=== PATIENT | female | born 1940 | race Caucasian/White ===

== ENCOUNTER 2016-10-11 07:56 | Day surgery (SDC) | payer OTHER, MEDICARE ==
[~2016-10-11] VITALS: Ht 167.6 cm; Wt 95.3 kg
[~2016-10-11 07:56] MED LIST: ATEN25TA PO; CeFAZolin Inj 2 GM in IV Premix 1 EACH IV SCH; HYDR-4003 PO; HYDR12.55 PO
[2016-10-11] MEDS ORDERED: fentaNYL-PF 50 mCg/mL 2 mL Inj ONE (07:57)
[2016-10-11] MEDS ORDERED: Propofol 10,000 mCg/mL 20 mL Inj ONE (07:57)
[2016-10-11] MEDS: Lactated Ringer's 1,000 ML IV SCH ×2 (08:00→08:58)
[2016-10-11] MEDS ORDERED: [UNRECOGNIZED DRUG - REMARK] PO (08:08)
[2016-10-11 08:35] VITALS: BP 117/75; PULSE 75; RESP 18; O2SAT 97
[2016-10-11] MEDS ORDERED: Lactated Ringer's 1,000 ML IV SCH (08:51)
[2016-10-11] MEDS ORDERED: Lactated Ringer's 500 ML IV PRN (08:51)
--- NOTE | 2016-10-11 08:51 | PCM.HPANE ---
Patient Data Date of Service: Oct 11, 2016 (0850) Surgeon Admitting Provider: Attending Provider:Rosita Bagley DPM Primary Care Physician:Lucero Petersen MD Other Provider:Mario Alberto Parks Anesthesia Reason for Visit Left 2ND And 3RD Hammertoes Ht/WT & BMI Height (Feet): 5 Height (Inches): 6 Weight (Kilograms): 95.98 Body Mass Index 34.00 Allergies Coded Allergies: ether (Verified Allergy, Unknown, 10/07/16) Past Anesthesia History Anesthesia History: Positive for:: Anesthesia Reactions (ether- had cardiac arrest, no problems with other anesth), Denies:: Abnormal Airway, Difficult Intubation, Fam Anesthesia Reaction, Fam Malignant Hypertherm, Malignant Hyperthermia Diabetes History Hx Diabetes?: No MRSA MRSA: No Medications Home Meds Incl Beta Stiven: Yes Active Scripts Hydrocodone-Acetaminophen 5-325 mg 1 Each Tablet1-2 Tablet PO Q4H PRN For Pain # 15 TABLET Prov:Jon Malin MD 04/23/16 Reported Medications [vingar pill] No Conflict Check Po Daily 10/11/16 Hydrochlorothiazide 12.5 Mg Ybuzsb56.5 Mg PO DAILY 30 Days Ref 0 08/07/15 Atenolol 25 Mg Aamyof70 Mg PO DAILY #30 TABLET Ref 0 08/07/15 History History of ENT Problems?: Yes HEENT History: Positive for:: Cataracts Denies:: Abnormal Airway Difficult Intubation Dysphagia Hearing Problem Sinus Problem Denture Type: Full- Upper Teeth Condition: Missing Teeth Hx of Heart Problems?: Yes Cardiovascular History: Positive for:: Chest Pain Hypertension Denies:: AICD Atrial Fibrillation Cardiac Surgery Congestive Heart Failure Edema Heart Murmur Irregular Heartbeat Pacemaker Thrombophlebitis Valvular Heart Disease Hx of Respiratory Problem?: Yes Respiratory History: Positive for:: COPD Dyspnea (Occasional with pain) Pneumonia Denies:: Asthma Chest Surgery Cough Emphysema Hemoptysis Tuberculosis Hx Neurologic Problems?: Yes Neurological History: Positive for:: Headaches Denies:: Alzheimer's Disease CVA Dementia Dizziness Parkinson's Disease Seizures Hx of GI Problems?: Yes Other GI Pertinent History: pancreatitis Hx of Problems?: No Genitourinary History: Denies:: HX of Hemodialysis Kidney Stones Urinary Tract Infection (hx of) HX of Peritoneal Dialysis: No Female Hx: Denies:: Currently Endometriosis Pelvic Inflammatory Problems with Breasts? Skin History: Positive for:: Pressure Ulcers (Pressure ulcers to back as a child after surgery) Denies:: History Skin Disorders? Hx Musculoskeletal Problems?: Yes Musculoskeletal History: Positive for:: Back Injury (Pain) Joint Replacement (LEFT HIP) Musculoskeletal Trauma (right wrist ganglion cyst current admission problem) Hx of Psycho/Social Problems?: No Psycho Social History: Denies:: Anxiety Bipolar Disorder Hx Depression Suicide Attempt Hx Surgeries?: No (sun, foot surgeries, r wrist ganglion cyst) Hx Any Other Health Problems?: Yes Other History: Positive for:: Hospitalization (Pancreatitis,) Denies:: Cancer Endocrine Disease Thyroid Disease History Blood Transfusions: Positive for:: Accept Blood Products? Blood Transfusions (own blood) Denies:: Blood Transfuse Reaction Hx Diabetes: No Hx Alcohol Use: Yes (wine daily each evening)Hx Substance Use: No Smoking Status: Current Every Day Smoker Have You Smoked inLast 12 mo: No Stop/Bang S-Snoring: Do You Snore Loudly: No T-Tired: feel tired, fatigued: Yes O-Obsered: Observed not breath: No P-Blood Pressure: treated: Yes B- Body Mass Index > 35 kg/m2: No A- Age over 50: Yes N- Neck Large Circumference: No G- Gender Male: No CHA Total Score: 3 CHA Risk Assessment: Low Risk, <3 Yes Risk Assessment Category Category 1A: Patient has history of documented sleep apnea, and HAS NOT received any narcotic, sedative or anesthesia administration during this stay. Category 1B: Patient has history of documented sleep apnea, and HAS received any narcotic , sedative or anesthesia administration during this stay Category 2: Patient has SUSPECTED Obstructive Sleep Apnea, and HAS received any narcotic , sedative or anesthesia administration during this stay. Category 3: Patient has SUSPECTED Obstructive Sleep Apnea and HAS NOT received narcotic, sedative or anesthesia administration during this stay. Category 4: Outpatient in Procedural Areas with known sleep apnea or who screen positive for High Risk via the STOP/BANG questionnaire. Exam Exam General Appearance: Alert, Oriented X3 HEENT/AIRWAY: MP 1 Lungs: Clear to Auscultation Heart: Exam Unremarkable Meds/Labs/Diagnostics Admission Meds Current Medications Lactated Ringer's (Lr) 1,000 ml @ 120 mls/hr Q8H20M IV Last administered on t 08:00; Start 10/11/16 at 05:00; Stop 10/11/16 at 13:19 Plan Impression Patient chart reviewed, patient interviewed and anesthestic plan with risks, benefits, and alternatives discussed, and informed consent obtained. NPO per Anesth. Guidelines: Yes ASA Physical Status: ASA2 Mod Systemic Disease Anesthetic Plan: GA Bene/Risks/Altern/Consents: Yes HP Complete Prior to Induction: Yes Akbar Herrera MD Oct 11, 2016 08:51
[2016-10-11] MEDS ORDERED: EPHEDrine Sulfate 50 mg/mL Inj IVPUSH PRN (08:55)
[2016-10-11] MEDS ORDERED: MetoCLOpramide 5 mg/mL 2 mL Inj IVPUSH PRN (08:55)
[2016-10-11] MEDS ORDERED: fentaNYL-PF 50 mCg/mL 2 mL Inj IVPUSH PRN (08:55)
[2016-10-11] MEDS ORDERED: Phenylephrine 10,000 mCg/mL Inj IVPUSH PRN (08:55)
[2016-10-11] MEDS ORDERED: Dexamethasone 4 mg/mL Inj IVPUSH PRN (08:55)
[2016-10-11] MEDS ORDERED: Ondansetron 2 mg/mL 2 mL Inj IVPUSH PRN (08:55)
[2016-10-11] MEDS ORDERED: HYDROmorphone 1 mg/mL Inj IVPUSH PRN (08:55)
[2016-10-11] MEDS ORDERED: Lidocaine PF 1% 30 mL Inj INJ ONE (09:20)
[2016-10-11] MEDS ORDERED: Ketorolac 15 mg/mL Inj IVPUSH PRN (10:15)
[2016-10-11] MEDS ORDERED: oxyCODONE-Acetamin 5-325 mg Tablet PO PRN (10:15)
--- NOTE | 2016-10-11 10:18 | PCM.ANEP1 ---
Post Anesthesia PACU Phase 1 Assessment Vital Signs 36.4, 97%, 62, 16, 104/64 Vital Signs Date Time Temp Pulse Resp B/P Pulse Ox O2 Delivery O2 Flow Rate FiO2 10/11/16 08:35 36.0 75 18 117/75 97 Room Air Anesthetic Administered: GA Level of Alertness: Awake, talking QURESHI's with Equal Strength: Yes Pain: No Nausea or Vomiting: No CV Function & Hydration Stable: Yes Airway Device: none Oxygen Delivery: Room Air Lungs: Clear to Auscultation Dermatome Level: Full Sensation Summary uneventful sedation PACU Phase 2 Assessment Complications: No Follow up Care: No Patient Instructions Provided: N/A Akbar Herrera MD Oct 11, 2016 10:18
[2016-10-11 10:20] VITALS: BP 104/64; PULSE 58; RESP 12; O2SAT 99
--- NOTE | 2016-10-11 10:35 | PCM.PODPO ---
Podiatry Operative Report Date of Service: Oct 11, 2016 (0850) Date of Service Oct 11, 2016 Pre Operative Diagnosis Left 2nd, 3rd, and 4th hammertoes. Post Operative Diagnosis Left 2nd, 3rd, and 4th hammertoes. Procedure Hammertoe correction with 2nd metatarsal osteotomy and proximal interphalangeal joint fusion, left 2nd toe. Hammertoe correction with proximal interphalangeal joint fusion, left 3rd toe. Hammertoe correction via percutaneous flexor tenotomy, left 4th toe. Surgeon Surgeon: Rosita Bagley DPM Assistants: None Indication for Procedure Pain and deformity interfering with shoegear. Findings Well corrected deformity. Details of Procedure Patient was identified in the preop holding area and brought back to the operating room, placed on the operating table in supine position. The timeout protocol was completed, the patient's name and site of surgery confirmed, IV sedation initiated. The left foot as anesthetized with plain 1% lidocaine. The left foot was prepped and draped in the usual aseptic manner. The first procedure was performed percutaneously on the plantar surface of the 4th PIP joint with a #67 [place] blade to release the flexor contracture. The second procedure was started via a dorsal curvilinear incision across the 3rd interphalangeal joint. The PIP joint capsule was incised, extensor tendon transected. the proximal phalangeal head and middle phalangeal base resected with a bone saw. The joint area was irrigated, the extensor tendon repaired with 4-0 Vicryl, and skin closed with 4-0 Prolene, yielding good reduction. The 3rd procedure was started via a dorsal curvilinear incision across the 3rd interphalangeal joint. The PIP joint capsule was incised, extensor tendon transected. the proximal phalangeal head and middle phalangeal base resected with a bone saw. The incision was carried down lateral to the tendon and MTP joitn capsule reflected off of the 2nd metatarsal head. An osteotomy was performed through the dorsal distal to proximal plantar plane of the metatarsal head and neck, the capital fragment translated proximally 8mm to achieve release of tension on the toe. The osteotomy was fixated with 2 2.0mm cortical screws in the usual manner, using a temporary K-wire fixation for positioning. The joint areas were irrigated, the capsule and extensor tendon repaired with 4- 0 Vicryl, and skin closed with 4-0 Prolene, yielding good reduction of deformity. Dressing consisted of Matthew's silk, 4x4" gauze, Kerlix, and Coban. No further implants were used due to patient's history of implant failure and restless leg syndrome. Splinting will be done for 6 weeks. Pseudoarthrosis or arthrodesis at PIP joints would both yield a good functional end result. The patient was weaned off of anesthesia and taken back to Day Surgery with stable vital signs and vascular status to the left foot intact. No tourniquet was necessary. Small bleeding vessels were cauterized as needed. Grafts, Implants: Implants-See Implant Record Complications There were no periprocedural complications identified. Condition Stable Anesthetic Administered: GA Drains: None Catheters: None Output, Estimated Blood Loss: 10 (ml) Blood Admin during surgery: No Surgical Specimen Removed: No Specimen sent to Pathology: No Post Operative Plan WB as tolerated in a postop shoe. Keep dressing clean, dry, and intact until follow up visit. PO pain medication prescribed at preop visit. Rosita Bagley DPM Oct 11, 2016 10:35
[2016-10-11] MEDS ORDERED: OXYC-465 PO (11:37)
[2016-10-11 13:00] VITALS: BP 110/66; PULSE 60; RESP 14; O2SAT 98
== END 2016-10-11 23:59 | disposition home or self-care (01) ==
LOC: SAS 07:56
PROVIDERS: ATTEND Podiatrist
DX: M20.42 Other hammer toe(s) (acquired), left foot (principal); M79.675 Pain in left toe(s); I10 Essential (primary) hypertension; J44.9 Chronic obstructive pulmonary disease, unspecified; F17.210 Nicotine dependence, cigarettes, uncomplicated; Z96.642 Presence of left artificial hip joint
CPT/HCPCS: 28010; 28285; 28308; C1713; J0690; J1200; J1885; J2250; J3010; J7120

== ENCOUNTER 2016-12-22 16:19 | Emergency (ER) | payer OTHER, MEDICARE ==
[~2016-12-22] VITALS: Ht 167.6 cm; Wt 90.9 kg
[~2016-12-22 16:19] MED LIST changes: -CeFAZolin Inj 2 GM in IV Premix 1 EACH IV SCH; +OXYC-465 PO; +[UNRECOGNIZED DRUG - REMARK] PO
[2016-12-22 16:46] VITALS: BP 134/81; PULSE 68; RESP 18; O2SAT 99
--- NOTE | 2016-12-22 18:28 | ED.REPORT ---
HPI-Trauma Minor / Fall Date of Service Dec 22, 2016 ED Provider: Humberto Pratt PA-C Rosa is a 76-year-old female presenting for evaluation approximately one day after a fall. Patient states she was walking up some concrete steps when she tripped [id number]-[id number] step and fell on the landing. Patient reports striking her face and losing consciousness for approximately 10 seconds. Complains of pain in her nose and lateral to her left eye. She complains of left knee pain and stiffness in her neck and shoulders. She is able to bear weight on the knee but is unable to bend it without significant pain. Denies vomiting, seizure, use blood thinners, worsening headache. Denies vision changes, neurological symptoms. Patient denies that the fall was preceded by a sense of dizziness, instability, presyncope or syncope, chest pain, shortness of breath. Nursing Notes Stated Complaint: FELL/HEAD INJURY Chief Complaint: Multiple Trauma/Fall Nursing Notes Reviewed: Yes Allergies: Coded Allergies: ether (Verified Allergy, Unknown, 12/22/16) Scheduled ([vingar pill]) PO DAILY Atenolol (Atenolol) 25 Mg Tablet 25 MG PO DAILY Hydrochlorothiazide (Hydrochlorothiazide) 12.5 Mg Tablet 12.5 MG PO DAILY Scheduled PRN Hydrocodone-Acetaminophen 5-325 mg (Hydrocodone-Acetaminophen 5-325 mg) 1 Each Tablet 1-2 TABLET PO Q4H PRN PRN For Pain oxyCODONE-Acetaminophen 7.5-325 mg (oxyCODONE-Acetaminophen 7.5-325 mg) 1 Each Tablet 1 TAB PO Q4H PRN PRN For Pain General Time Seen by MD: 18:00 Chief Complaint Fall Past Medical History Past Medical History Pancreatitis Diverticulitis Chronic low back pain Reports: Hypertension Past Surgical History Reports: Cholecystectomy Smoking History Current Every Day Smoker Social History Per records, pt. is a former smoker, she currently denies smoking on 04/23/2016 and she is a daily drinker. She reports feeling guilty about drinking and feels that she could cut back on the amount that she drinks. Other Social History: Good social support, Local resident Ambulatory Status Independent Review of Systems Review of Systems Note: Negative unless stated otherwise in history of present illness Physical Exam General: Well appearing, well developed, well nourished, no acute distress. Head: Abrasion to the tip of the nose, bilateral bruising on the inferior and medial aspect of the eyelids Eyes: Red reflex equal bilaterally. Anterior chambers clear. No scleral icterus or injection. No discharge. PERRL. Vision grossly intact. Ears: Pinna and tragus nontender with manipulation. External auditory canal patent, atraumatic and without discharge. Tympanic membrane larson, shiny and translucent without blood, fluid, bulging, retraction or perforation. Hearing grossly intact. Nose: Symmetrical, nares patent without discharge. No frontal or maxillary sinus tenderness. Mouth/pharynx: Small laceration on the midline mucosa lower lip. Negative bite test with a tongue blade bilaterally. Normal dentition, mucus membranes moist. Tonsils 2+ and symmetrical, uvula midline. Pharynx noninjected, no cobblestoning or discharge. Voice clear. Neck: No tenderness or lymphadenopathy. Trachea midline. Respiratory: No respiratory distress, no increased work of breathing. Speaks in complete sentences. Cardiovascular: Regular rate and rhythm Left hip: Tender to palpation over the greater trochanter, good range of motion Left knee: Tender to palpation along the medial and lateral joint lines as well as patella. Patient does not tolerate range of motion nontender in the popliteal fossa. Small abrasion over the patella. Left foot/ankle: PT and DP pulses 2+. Normal to inspection, nontender, good range of motion. Sensation and brisk capillary refill intact in distal phalanges. Skin: Warm and dry. Neurological: Sensation strength grossly intact in distal extremities. Normal finger-nose, rapid hand. Pronator drift testing is limited by patient's limited mobility in her right shoulder which is long-standing. Patient is not able to participate and heel dunne test due to pain in her left knee. Sensation to sharp touch is intact over the upper body. Cranial nerves: Vision grossly intact, PERRL, EOMI with mild diplopia in upper range. Facial motion symmetrical, sensation to light touch over forehead, maxilla and mandible present and equal B/L. Voice clear and fluent, no drooling/ pooling of saliva, uvula rises midline. Psychological: alert and oriented. Speech appropriate, linear and logical. Behavior appropriate. Initial Vital Signs Vital Signs (First) Date Time Temp Pulse Resp B/P Pulse Ox O2 Delivery O2 Flow Rate FiO2 12/22/16 16:46 36.2 68 18 134/81 99 Room Air Interpretation & Diagnostics Lab Results Interpretation Test 12/22/16 17:26 Hold Urine Received (Received) X-Ray Interpretation Xray Interpretation: PROCEDURE: X-RAY LEFT KNEE, THREE VIEWS ([id number]) INDICATIONS: fall, knee pain IMPRESSION: There is a mild to moderate degree of knee joint osteoarthritis on the frontal projection, with thinning of both the medial and lateral compartment joint width. The patellofemoral joint and medial facet shows a significantly greater degree of degeneration with near tuar-di-ydfp articulation. No acute trauma. Old femur fracture fixation plate partially visualized at the upper imaging margin. Interpretation / Wet Read by: Interpret - Radiologist CT Head Interpretation PROCEDURE: CT BRAIN WITHOUT CONTRAST ([id number]) INDICATIONS: fall, loss of consciousness, cervical tenderness IMPRESSION: No trauma found. Interpretation / Wet Read by: Interpret - Radiologist CT C-Spine Interpretation PROCEDURE: CT CERVICAL SPINE WITHOUT CONTRAST ([id number]) INDICATIONS: fall, loss of consciousness, cervical tenderness IMPRESSION: Moderately severe degenerative disc disease and facet osteoarthritis over the cervical spine with most pronounced degenerative changes from C2-C5, where significant spinal and foraminal stenosis appears present. None of these abnormalities appear acute/traumatic. Interpretation / Wet Read by: Interpret - Radiologist Re-Eval/Medical Decision Med Decision/Clinical Course This is an 76-year-old female presented with a chief complaint of a fall approximately one day ago. Patient reports tripping at the top of a flight of stairs and falling forward striking her face and left knee. This appears to be a mechanical fall, patient denies that the fall was preceded by dizziness, presyncope, syncope or other symptoms. Patient complains of pain in her nose, lateral to her left eye, stiffness in her neck and shoulders, pain in her left knee. She reports pain with range of motion but is able to bear weight on it. Denies severe headache, vomiting, seizure, his blood thinners, neurological symptoms. Physical examination reveals abrasions to the nose and forehead, chin and inside lower lip. Some tenderness lateral to the left eye. Negative tenderness of the left brow ridge, maxilla or the zygomatic arch. Nostrils are patent without discharge or septal hematoma. There is mild midline cervical spine tenderness. Examination of the left knee reveals tenderness at the medial and lateral joint 9 to over the patella. There is a small abrasion over the patella. There is no obvious joint effusion. Neurovascularly intact distal. Patient does not tolerate range of motion. I discussed this case with Dr. Sheth, we agree it prudent to order a head CT , neck CT and x-rays. Treatment is initiated with [place] 2. Imaging returns negative for acute injuries. With the pain in her face and knee are most likely contusions. The pain in her neck I believe the cervical strain. I believe she meets criteria for diagnosis of concussion based on her loss of consciousness. In discussing this with the patient she relates to me that she has noted some blurred vision in her left eye. Neurological examination remains normal with exception of diplopia noted in the upper range of EOMI. I discussed these findings with Dr. Sheth. She is concerned for vitreous humor detachment or retinal detachment. Advises more thorough eye exam and consultation with ophthalmology. Eye exam is negative for hyphema, red reflexes equal bilaterally. Visual acuity is tested, 20/30 right eye, 20/25 left eye and 20/ 25 with both eyes. Discussed the case with Dr. Lentz, who feels this is unlikely to be an emergent condition and will make arrangements for the patient to be seen tomorrow. She agrees to follow up with ophthalmology. Advised regarding primary care follow-up, provided emergency return precautions. Patient verbalized understanding of, and consent to, the plan. Consultation : Referral / Consult Name: KAREN LENTZ MD Consulted With: Loan Review Analyst Call Returned at: 20:30 Note: Dr. Lentz does not believe this is an emergent condition and can be seen in office tomorrow. His staff will contact the patient tomorrow to arrange an appointment. Discharge & Departure Impression: Primary Impression: Cervical strain, acute Encounter type: initial encounter Qualified Code: S16.1XXA - Strain of muscle, fascia and tendon at neck level, initial encounter Additional Impressions: Contusion, nose Contusion of left knee Encounter type: initial encounter Qualified Code: S80.02XA - Contusion of left knee, initial encounter Concussion Encounter type: initial encounter Loss of consciousness presence/duration: with LOC of 30 min or less Qualified Code: S06.0X1A - Concussion with loss of consciousness of 30 minutes or less, initial encounter Blurred vision, left eye Disposition: Home Discharge Condition All VS Reviewed: Yes Patient Instructions: Cervical Neck Strain Exercises (GEN), Cervical Strain (ED ), Concussion (ED), Contusion in Adults (ED) Additional Instructions: Evaluation in the emergency department following a fall includes interview, examination CT of her head and neck as well as an x-ray of left knee. These are all reassuring that there are no fractures or intracranial bleeding. I believe the pain in your neck is cervical strain, minor injury to the muscles of the neck caused by your fall. This may worsen tomorrow but should improve steadily over the next 2 weeks. Rest, warm compresses and gentle massage will be helpful. Believe the pain in her knee is a contusion caused by the fall. There is no indication of a fracture. We will wrap the knee and a compression bandage today. I recommend elevating it several times a day and apply ice to reduce swelling. Flex it gently as tolerated. Pain is best managed in 1000 mg of acetaminophen taken every 6 hours. Because he describe a history of loss of consciousness, we should assume that you have received a concussion. Discontinue activities that cause headache or nausea until symptoms resolve. Gradually add activities as tolerated. It is very important that you avoid any repeated the blow to your head. I am also concerned about her report of blurred vision in her left eye. I discussed the case with Dr. Lentz, an metallurgical engineering teacher in his office will contact you tomorrow to get in to be seen. Follow-up with your primary care provider in the next few days to be sure this is progressing as expected. If symptoms continue it may be worth taking a repeat images. Return to emergency department for new or worsening symptoms including suddenly increasing pain, headache, vomiting, neurological symptoms. Referrals: Lucero Petersen MD (PCP) KAREN LENTZ MD EDSupervising Provider for APC: Lele Estrella MD copies to: KAREN LENTZ MD; Lucero Petersen MD, Seth PA-C Dec 22, 2016 18:28
[2016-12-22] MEDS ORDERED: HYDROcodone-APAP 5-325 mg Tablet PO ONE (18:35)
[2016-12-22 18:50] VITALS: BP 147/85; PULSE 66; RESP 17; O2SAT 97
--- NOTE | 2016-12-22 19:17 | DRSVH ---
PROCEDURE: X-RAY LEFT KNEE, THREE VIEWS ([id number]) INDICATIONS: fall, knee pain TECHNIQUE: 3 views of the knee were acquired. COMPARISON: None. FINDINGS: Bones: No fractures or dislocations. No suspicious bony lesions. Soft tissues: No joint effusion. No suspicious soft tissue calcifications. IMPRESSION: There is a mild to moderate degree of knee joint osteoarthritis on the frontal projection , with thinning of both the medial and lateral compartment joint width. The patellofemoral joint and medial facet shows a significantly greater degree of degeneration with near [id number]-zn-[id number] articulatio n. No acute trauma. Old femur fracture fixation plate partially visualized at the [facility] imaging [facility]. Dictated by: Amrik Browne M.D. on 12/22/2016 at 19:13 Approved by: Amrik Browne M.D. on 12/22/2016 at 19:15
--- NOTE | 2016-12-22 19:22 | DRSVH ---
PROCEDURE: CT BRAIN WITHOUT CONTRAST ([id number]) INDICATIONS: fall, loss of consciousness, cervical tenderness TECHNIQUE: Noncontrast 4.5 mm thick angled axial sections acquired from the foramen magnum to the vertex, with c oronal reformats. COMPARISON: None. FINDINGS: Image quality: Excellent. CSF spaces: Basal cisterns are patent. No extra-axial fluid collections. The ventricles are symmet edi in size and shape. Brain: No intracranial bleeds or masses. There is cerebral volume loss for age, with resultant vent ricular and sulcal prominence. There are periventricular and deep white matter chronic small vessel ischemic changes. There is intracranial internal carotid artery atherosclerosis. Skull and face: Calvarium and visualized facial bones appear intact, without suspicious lesions. Sinuses: Visualized sinuses and mastoids are clear. IMPRESSION: No trauma found. Dictated by: Amrik Browne M.D. on 12/22/2016 at 19:20 Approved by: Amrik Browne M.D. on 12/22/2016 at 19:21
--- NOTE | 2016-12-22 19:25 | DRSVH ---
PROCEDURE: CT CERVICAL SPINE WITHOUT CONTRAST ([id number]) INDICATIONS: fall, loss of consciousness, cervical tenderness TECHNIQUE: Noncontrast 3 mm thick sections acquired from the skull base to the T4 level. Sagittal and coronal r eformats were then constructed. For radiation dose reduction, the following was used: automated exp osure control, adjustment of mA and/or kV according to patient size. COMPARISON: None. FINDINGS: Image quality: Excellent. Bones: No fractures or dislocations but there is slight anterolisthesis of C2 on C3 and slight retro listhesis of C3 on C4. The intervertebral disc spaces are reduced to a moderately severe degree over the entirety of the cervical spine, and moderate bilateral facet osteoarthritis is present. However , the exact degree of spinal and foraminal stenosis is indeterminate by this study but moderately sev ere overall especially at the C2-C5 region Visualized superior ribs are intact. Soft tissues: Prevertebral soft tissues are normal in thickness. No paravertebral hematomas. No ap ical pneumothoraces. IMPRESSION: Moderately severe degenerative disc disease and facet osteoarthritis over the cervical sp ine with most pronounced degenerative changes from C2-C5, where significant spinal and foraminal sten osis appears present. None of these abnormalities appear acute/traumatic. Dictated by: Amrik Browne M.D. on 12/22/2016 at 19:21 Approved by: Amrik Browne M.D. on 12/22/2016 at 19:24
[2016-12-22 21:06] VITALS: BP 128/74; PULSE 84; RESP 16; O2SAT 96
== END 2016-12-22 20:30 | disposition home or self-care (01) ==
LOC: SED 16:19
DX: S06.0X0A Concussion without loss of consciousness, initial encounter (principal); S16.1XXA Strain of muscle, fascia and tendon at neck level, initial encounter; S80.02XA Contusion of left knee, initial encounter; S00.33XA Contusion of nose, initial encounter; W10.8XXA Fall (on) (from) other stairs and steps, initial encounter; Y93.01 Activity, walking, marching and hiking; Y92.524 Gas station as the place of occurrence of the external cause; Y99.8 Other external cause status; H53.8 Other visual disturbances; I10 Essential (primary) hypertension; F17.200 Nicotine dependence, unspecified, uncomplicated; Z88.8 Allergy status to other drugs, medicaments and biological substances